=== PATIENT | female | born 1970 | race African-American/Black ===

== ENCOUNTER 2017-09-15 23:20 | Emergency (ER) | payer MEDICAID, OTHER | END 2017-09-15 23:52 | disposition left against medical advice (07) | LOC: ER 23:20 | DX: Z53.21 Procedure and treatment not carried out due to patient leaving prior to being seen by health care provider (principal) ==

== ENCOUNTER 2018-07-31 01:38 | Emergency (ER) | payer MEDICAID ==
[~2018-07-31] VITALS: Ht 167.6 cm; Wt 66.0 kg
[2018-07-31] MEDS ORDERED: KETOROLAC 60MG/2ML VIAL IM ONE (03:00)
[2018-07-31 03:11] LABS: CLARITY URINE CLEAR (CLEAR); COLOR URINE YELLOW (YELLOW); KETONES URINE TRACE (NEGATIVE); LEUKOCYTE ESTERASE URINE NEGATIVE (NEGATIVE); NITRITE URINE NEGATIVE (NEGATIVE); OCCULT BLOOD URINE 2+ (NEGATIVE); PH URINE 5.5 (4.5-8.0); PROTEIN URINE NEGATIVE (NEGATIVE); SPECIFIC GRAVITY URINE 1.026 (1.005-1.030)
[2018-07-31 04:40] VITALS: BP 120/85
== END 2018-07-31 04:48 | disposition home or self-care (01) ==
LOC: ER 02:36
DX: R60.0 Localized edema (principal); F12.10 Cannabis abuse, uncomplicated; Z98.890 Other specified postprocedural states; Z88.1 Allergy status to other antibiotic agents
CPT/HCPCS: 81003; 81025; 93970; 96372; 99284; J1885

== ENCOUNTER 2018-08-03 22:46 | Emergency (ER) | payer MEDICAID ==
[~2018-08-03] VITALS: Ht 167.6 cm; Wt 64.0 kg
[2018-08-03 23:54] VITALS: BP 126/105
[2018-08-04] MEDS ORDERED: IBUPROFEN 600MG TABLET PO ONE (00:45)
[2018-08-04 01:19] LABS: CLARITY URINE CLOUDY (CLEAR); COLOR URINE YELLOW (YELLOW); KETONES URINE TRACE (NEGATIVE); LEUKOCYTE ESTERASE URINE TRACE (NEGATIVE); NITRITE URINE NEGATIVE (NEGATIVE); OCCULT BLOOD URINE NEGATIVE (NEGATIVE); PROTEIN URINE NEGATIVE (NEGATIVE); SPECIFIC GRAVITY URINE 1.036 (1.005-1.030)
[2018-08-04 01:31] LABS: *AMPHETAMINES SCREEN URINE NEGATIVE (NEGATIVE); *BARBITURATES SCREEN URINE NEGATIVE (NEGATIVE); *BENZODIAZEPINES SCREEN URINE NEGATIVE (NEGATIVE); *COCAINE SCREEN URINE NEGATIVE (NEGATIVE); METHADONE URINE SCREEN NEGATIVE (NEGATIVE)
[2018-08-04 01:32] LABS: PHENCYCLIDINE URINE SCREEN NEGATIVE (NEGATIVE)
[2018-08-04 01:35] LABS: CANNABINOID URINE SCREEN PRESUMTIVE POSITIVE (NEGATIVE); OPIATES URINE SCREEN PRESUMTIVE POSITIVE (NEGATIVE)
[2018-08-04 01:50] LABS: HEMATOCRIT. 35.1 % (36.0-48.0); HEMOGLOBIN. 11.5 g/dL (12.0-16.0); LYMPHOCYTES % 30.1 % (20.0-50.0); MEAN CORPUSCULAR HEMOGLOBIN 27.9 pg (28.0-32.0); MEAN CORPUSCULAR VOLUME 84.7 fL (81.0-99.0); MEAN PLATELET VOLUME 9.3 fl (7.4-10.4); MONOCYTES % 9.6 % (2.0-8.0); NEUTROPHILS % 58.3 % (40.0-76.0); PLATELET 192 x1000/uL (130-400); RED BLOOD CELL COUNT 4.14 mill/uL (4.2-5.4); RED CELL DISTRIBUTION WIDTH 13.7 % (11.6-14.6)
[2018-08-04 01:55] LABS: CHLORIDE 106 mEq/L (98-107)
[2018-08-04 01:56] LABS: PROTHROMBIN TIME 9.9 sec (9.6-11.0)
[2018-08-04] MEDS ORDERED: CEPHALEXIN 250MG CAPSULE PO ONE (02:30)
[2018-08-04] MEDS ORDERED: ACETAMINOPHEN 325MG TABLET PO ONE (02:30)
== END 2018-08-04 02:33 | disposition home or self-care (01) ==
LOC: ER 22:46
DX: M54.42 Lumbago with sciatica, left side (principal); N39.0 Urinary tract infection, site not specified; M79.605 Pain in left leg; F12.10 Cannabis abuse, uncomplicated; Z98.890 Other specified postprocedural states; Z88.1 Allergy status to other antibiotic agents
CPT/HCPCS: 36415; 73502; 80305; 81025; 99284

== ENCOUNTER 2018-10-13 06:15 | Emergency (ER) | payer MEDICAID ==
[~2018-10-13] VITALS: Ht 167.6 cm; Wt 69.0 kg
[2018-10-13 06:55] VITALS: BP 124/58
[2018-10-13] MEDS ORDERED: CEFTRIAXONE SODIUM 250 MG/VIAL IM ONE (07:15)
[2018-10-13] MEDS ORDERED: AZITHROMYCIN 500 MG TABLET PO ONE (07:15)
[2018-10-13 07:54] LABS: CLARITY URINE CLOUDY (CLEAR); COLOR URINE YELLOW (YELLOW); KETONES URINE NEGATIVE (NEGATIVE); LEUKOCYTE ESTERASE URINE NEGATIVE (NEGATIVE); NITRITE URINE NEGATIVE (NEGATIVE); OCCULT BLOOD URINE TRACE (NEGATIVE); PH URINE 5.5 (4.5-8.0); PROTEIN URINE NEGATIVE (NEGATIVE); SPECIFIC GRAVITY URINE 1.023 (1.005-1.030)
[2018-10-15 04:14] LABS: CHLAMYDIA TRACHOMATIS NAA Negative (Negative); NEISSERIA GONORRHOEAE NAA Negative (Negative)
== END 2018-10-13 09:10 | disposition left against medical advice (07) ==
LOC: ER 06:15
DX: N76.0 Acute vaginitis (principal); F12.10 Cannabis abuse, uncomplicated; Z87.440 Personal history of urinary (tract) infections; Z98.890 Other specified postprocedural states; Z88.1 Allergy status to other antibiotic agents
CPT/HCPCS: 81003; 81025; 87491; 87591; 96372; 99283; J0696

== ENCOUNTER 2019-01-16 06:52 | Emergency (ER) | payer MEDICAID ==
[~2019-01-16] VITALS: Ht 167.6 cm; Wt 75.0 kg
[2019-01-16 07:59] LABS: CLARITY URINE CLEAR (CLEAR); COLOR URINE YELLOW (YELLOW); KETONES URINE TRACE (NEGATIVE); LEUKOCYTE ESTERASE URINE NEGATIVE (NEGATIVE); NITRITE URINE NEGATIVE (NEGATIVE); OCCULT BLOOD URINE NEGATIVE (NEGATIVE); PROTEIN URINE NEGATIVE (NEGATIVE); SPECIFIC GRAVITY URINE 1.029 (1.005-1.030); UROBILINOGEN URINE 0.2 E.U./dL (0.2-1.0)
[2019-01-16 09:06] VITALS: BP 135/75
== END 2019-01-16 09:08 | disposition home or self-care (01) ==
LOC: ER 06:52
DX: B86 Scabies (principal); R30.0 Dysuria; F12.90 Cannabis use, unspecified, uncomplicated
CPT/HCPCS: 81003; 81025; 99283

== ENCOUNTER 2019-03-01 23:42 | Emergency (ER) | payer MEDICAID ==
[~2019-03-01] VITALS: Ht 167.6 cm; Wt 73.0 kg
[2019-03-02] MEDS ORDERED: PHENAZOPYRIDINE HCL 100MG TABLET PO ONE (02:00)
[2019-03-02] MEDS ORDERED: NITROFURANTOIN 100MG M/M CAPSULE PO ONE (02:00)
[2019-03-02 02:38] VITALS: BP 118/74
== END 2019-03-02 02:46 | disposition home or self-care (01) ==
LOC: ER 23:42
DX: N39.0 Urinary tract infection, site not specified (principal); F12.10 Cannabis abuse, uncomplicated; Z88.1 Allergy status to other antibiotic agents; Z98.890 Other specified postprocedural states; Z82.49 Family history of ischemic heart disease and other diseases of the circulatory system
CPT/HCPCS: 81025; 99283; Z7610

== ENCOUNTER 2019-11-12 02:34 | Emergency (ER) | payer OTHER ==
[~2019-11-12] VITALS: Ht 167.6 cm; Wt 74.0 kg
[2019-11-12] MEDS ORDERED: LIDOCAINE HCL 1% 20ML VIAL (Pyxis) INJ INFIL ONE (03:30)
[2019-11-12] MEDS ORDERED: CEFTRIAXONE SODIUM 250 MG/VIAL IM ONE (03:30)
[2019-11-12] MEDS ORDERED: ONDANSETRON HCL 4MG/2ML INJ IM ONE (03:30)
[2019-11-12] MEDS ORDERED: FAMOTIDINE 20MG TABLET PO ONE (03:30)
[2019-11-12] MEDS ORDERED: AZITHROMYCIN 500 MG TABLET PO ONE (03:30)
[2019-11-12 03:47] LABS: CLARITY URINE CLEAR (CLEAR); COLOR URINE YELLOW (YELLOW); KETONES URINE NEGATIVE (NEGATIVE); LEUKOCYTE ESTERASE URINE NEGATIVE (NEGATIVE); NITRITE URINE NEGATIVE (NEGATIVE); OCCULT BLOOD URINE NEGATIVE (NEGATIVE); PROTEIN URINE NEGATIVE (NEGATIVE); SPECIFIC GRAVITY URINE 1.006 (1.005-1.030); UROBILINOGEN URINE 0.2 E.U./dL (0.2-1.0)
[2019-11-12 05:40] VITALS: BP 122/87
[2019-11-14 04:07] LABS: NEISSERIA GONORRHOEAE NAA Negative (Negative)
== END 2019-11-12 05:41 | disposition home or self-care (01) ==
LOC: ER 02:34
DX: N72 Inflammatory disease of cervix uteri (principal); H10.9 Unspecified conjunctivitis; Z98.890 Other specified postprocedural states
CPT/HCPCS: 81003; 81025; 87210; 87491; 87591; 96372; 99284; J0696; J2405; J3490

== ENCOUNTER 2019-11-26 17:50 | Emergency (ER) | payer OTHER ==
[~2019-11-26] VITALS: Ht 170.2 cm; Wt 73.0 kg
[2019-11-26 17:55] VITALS: BP 136/90
== END 2019-11-26 22:07 | disposition left against medical advice (07) ==
LOC: ER 17:50
DX: R07.89 Other chest pain (principal)
CPT/HCPCS: 93005; 99283

== ENCOUNTER 2019-12-02 16:40 | Emergency (ER) | payer OTHER ==
[~2019-12-02] VITALS: Ht 162.6 cm; Wt 80.0 kg
[2019-12-02 16:43] VITALS: BP 131/83
[2019-12-02] MEDS ORDERED: DEXAMETHASONE 4MG/ML 1ML VIAL IM ONE (17:15)
[2019-12-02] MEDS ORDERED: DIPHENHYDRAMINE 25MG CAPSULE PO ONE (17:15)
[2019-12-02 17:59] LABS: CLARITY URINE CLOUDY (CLEAR); COLOR URINE ORANGE (YELLOW); KETONES URINE NEGATIVE (NEGATIVE); LEUKOCYTE ESTERASE URINE 1+ (NEGATIVE); NITRITE URINE NEGATIVE (NEGATIVE); OCCULT BLOOD URINE 3+ (NEGATIVE); PROTEIN URINE 2+ (NEGATIVE); SPECIFIC GRAVITY URINE 1.042 (1.005-1.030)
== END 2019-12-02 18:15 | disposition home or self-care (01) ==
LOC: ER 16:40
DX: T78.40XA Allergy, unspecified, initial encounter (principal); X58.XXXA Exposure to other specified factors, initial encounter; B37.41 Candidal cystitis and urethritis
CPT/HCPCS: 81003; 81025; 96372; 99283; J1100; Q0163

== ENCOUNTER 2019-12-04 03:40 | Emergency (ER) | payer OTHER ==
[~2019-12-04] VITALS: Ht 167.6 cm; Wt 73.0 kg
[2019-12-04] MEDS ORDERED: DIPHENHYDRAMINE 50MG/ML VIAL IM ONE (04:00)
[2019-12-04] MEDS ORDERED: VISCOUS LIDOCAINE 2% 15 ML UDC PO ONE (04:15)
[2019-12-04] MEDS ORDERED: MAGNESIUM/ALUMINUM HYDROXIDE/SIMETHICONE 30ML UDC PO ONE (04:15)
[2019-12-04] MEDS ORDERED: KETOROLAC 30MG/ML VIAL IV STA (05:39)
[2019-12-04] MEDS ORDERED: SODIUM CHLORIDE 0.9% 1,000 ML IV ONE (05:39)
[2019-12-04 06:00] LABS: BASOPHILS % 0.3 % (0.0-2.0); HEMATOCRIT. 37.8 % (36.0-48.0); HEMOGLOBIN. 12.3 g/dL (12.0-16.0); MEAN CORPUSCULAR HEMOGLOBIN 28.1 pg (28.0-32.0); MEAN CORPUSCULAR VOLUME 86.5 fL (81.0-99.0); MEAN PLATELET VOLUME 10.2 fl (7.4-10.4); MONOCYTES % 9.6 % (2.0-8.0); NEUTROPHILS % 72.1 % (40.0-76.0); PLATELET 174 x1000/uL (130-400); RED BLOOD CELL COUNT 4.37 mill/uL (4.2-5.4); RED CELL DISTRIBUTION WIDTH 13.9 % (11.6-14.6)
[2019-12-04 06:08] LABS: CHLORIDE 110 mEq/L (98-107)
[2019-12-04 06:18] LABS: HCG SCREEN NEGATIVE
[2019-12-04] MEDS ORDERED: POTASSIUM CHLORIDE 20MEQ TABLET SR PO ONE (06:45)
[2019-12-04 10:59] LABS: CLARITY URINE CLOUDY (CLEAR); COLOR URINE YELLOW (YELLOW); KETONES URINE NEGATIVE (NEGATIVE); LEUKOCYTE ESTERASE URINE 1+ (NEGATIVE); NITRITE URINE NEGATIVE (NEGATIVE); OCCULT BLOOD URINE 3+ (NEGATIVE); PH URINE 5.5 (4.5-8.0); PROTEIN URINE 1+ (NEGATIVE); SPECIFIC GRAVITY URINE 1.025 (1.005-1.030)
[2019-12-04 11:11] VITALS: BP 124/77
== END 2019-12-04 11:12 | disposition home or self-care (01) ==
LOC: ER 03:40
DX: N83.292 Other ovarian cyst, left side (principal); N83.291 Other ovarian cyst, right side; D25.9 Leiomyoma of uterus, unspecified; N39.0 Urinary tract infection, site not specified; T78.40XA Allergy, unspecified, initial encounter; X58.XXXA Exposure to other specified factors, initial encounter; R03.0 Elevated blood-pressure reading, without diagnosis of hypertension
CPT/HCPCS: 36415; 74176; 76830; 76856; 80053; 81003; 83690; 84703; 85025; 87086; 96361; 96372; 96374; 99285; J1200; J1885; J7030

== ENCOUNTER 2021-04-04 18:24 | Emergency (ER) | payer OTHER ==
[~2021-04-04] VITALS: Ht 167.6 cm; Wt 69.0 kg
[2021-04-04 18:32] VITALS: BP 159/85
== END 2021-04-04 22:00 | disposition left against medical advice (07) ==
LOC: ER 18:24
DX: Z53.21 Procedure and treatment not carried out due to patient leaving prior to being seen by health care provider (principal)

== ENCOUNTER 2021-11-18 22:18 | Emergency (ER) | payer OTHER ==
[~2021-11-18] VITALS: Ht 167.6 cm; Wt 79.0 kg
[2021-11-18 22:21] VITALS: BP 140/79
[2021-11-18] MEDS ORDERED: PSEU-207 MT (23:47)
[2021-11-18] MEDS ORDERED: SODI88SP18 BOTHNSTRLS (23:47)
== END 2021-11-19 00:01 | disposition home or self-care (01) ==
LOC: ER 22:18
DX: R09.81 Nasal congestion (principal); R06.00 Dyspnea, unspecified; R53.1 Weakness; J02.9 Acute pharyngitis, unspecified; I10 Essential (primary) hypertension
CPT/HCPCS: 99281; 99282

== ENCOUNTER 2021-12-29 00:05 | Emergency (ER) | payer OTHER ==
[~2021-12-29] VITALS: Ht 167.6 cm; Wt 79.0 kg
[~2021-12-29 00:05] MED LIST: PSEU-207 MT; SODI88SP18 BOTHNSTRLS
[2021-12-29 00:13] VITALS: BP 121/87
== END 2021-12-29 02:44 | disposition left against medical advice (07) ==
LOC: ER 00:05
DX: Z53.21 Procedure and treatment not carried out due to patient leaving prior to being seen by health care provider (principal)

== ENCOUNTER 2022-01-10 19:55 | Emergency (ER) | payer OTHER ==
[~2022-01-10] VITALS: Ht 167.6 cm; Wt 80.9 kg
[2022-01-10] MEDS ORDERED: ASPIRIN 81MG TABLET PO ONE (22:30)
[2022-01-10 23:01] LABS: BASOPHILS % 0.4 % (0.0-2.0); EOSINOPHILS % 3.8 % (0.0-5.0); HEMATOCRIT. 41.4 % (36.0-48.0); HEMOGLOBIN. 13.5 g/dL (12.0-16.0); LYMPHOCYTES % 35.8 % (20.0-50.0); MEAN CORPUSCULAR HEMOGLOBIN 27.5 pg (28.0-32.0); MEAN CORPUSCULAR VOLUME 84.5 fL (81.0-99.0); MEAN PLATELET VOLUME 10.2 fl (7.4-10.4); MONOCYTES % 8.7 % (2.0-8.0); NEUTROPHILS % 51.3 % (40.0-76.0); PLATELET 192 x1000/uL (130-400); RED BLOOD CELL COUNT 4.89 mill/uL (4.2-5.4); RED CELL DISTRIBUTION WIDTH 14.3 % (11.6-14.6)
[2022-01-10 23:08] LABS: CHLORIDE 106 mEq/L (98-107)
[2022-01-10 23:10] LABS: CLARITY URINE CLEAR (CLEAR); COLOR URINE YELLOW (YELLOW); KETONES URINE TRACE (NEGATIVE); LEUKOCYTE ESTERASE URINE TRACE (NEGATIVE); NITRITE URINE NEGATIVE (NEGATIVE); OCCULT BLOOD URINE NEGATIVE (NEGATIVE); PROTEIN URINE NEGATIVE (NEGATIVE); SPECIFIC GRAVITY URINE 1.027 (1.005-1.030)
[2022-01-11] MEDS ORDERED: CEFTRIAXONE 1 G PREMIX 50 ML IV NR (01:30)
[2022-01-11] MEDS ORDERED: CEPHALEXIN 250MG CAPSULE PO ONE (01:45)
[2022-01-11] MEDS ORDERED: CEPH500C2 MT (03:06)
[2022-01-11 03:19] VITALS: BP 113/90
== END 2022-01-11 03:36 | disposition home or self-care (01) ==
LOC: ER 19:55
DX: R55 Syncope and collapse (principal); N39.0 Urinary tract infection, site not specified; Z98.890 Other specified postprocedural states
CPT/HCPCS: 36415; 71045; 80053; 81003; 83880; 84484; 85025; 93005; 99285; Z7610

== ENCOUNTER 2022-02-26 03:44 | Emergency (ER) | payer MEDICAID, OTHER ==
[~2022-02-26] VITALS: Ht 167.6 cm; Wt 82.0 kg
[~2022-02-26 03:44] MED LIST changes: +CEPH500C2 MT
[2022-02-26] MEDS ORDERED: GUAI600T26 MT (06:13)
[2022-02-26 06:15] VITALS: BP 135/89
[2022-02-26] MEDS ORDERED: GUAIFENESIN 600MG ER TABLET PO ONE (06:15)
== END 2022-02-26 06:22 | disposition home or self-care (01) ==
LOC: ER 03:44
DX: B34.9 Viral infection, unspecified (principal); Z13.9 Encounter for screening, unspecified; Z20.822 Contact with and (suspected) exposure to COVID-19; Z88.1 Allergy status to other antibiotic agents; Z98.890 Other specified postprocedural states
CPT/HCPCS: 71045; 81025; 87426; 99284; C9803

== ENCOUNTER 2022-03-02 00:08 | Emergency (ER) | payer MEDICAID ==
[~2022-03-02 00:08] MED LIST changes: +GUAI600T26 MT
== END 2022-03-02 00:25 | disposition left against medical advice (07) ==
LOC: ER 00:08
DX: Z53.21 Procedure and treatment not carried out due to patient leaving prior to being seen by health care provider (principal)

== ENCOUNTER 2022-05-02 16:42 | Emergency (ER) | payer MEDICAID ==
[~2022-05-02] VITALS: Ht 167.6 cm; Wt 82.0 kg
[2022-05-02 17:06] VITALS: BP 128/87
[2022-05-02] MEDS ORDERED: CEFTRIAXONE SODIUM 500 MG/VIAL IM ONE (22:00)
[2022-05-02] MEDS ORDERED: IBUPROFEN 400MG TABLET PO ONE (22:00)
== END 2022-05-03 01:07 | disposition left against medical advice (07) ==
LOC: ER 16:42
DX: M25.531 Pain in right wrist (principal); Z88.1 Allergy status to other antibiotic agents; Z98.890 Other specified postprocedural states; W10.9XXA Fall (on) (from) unspecified stairs and steps, initial encounter; Y93.89 Activity, other specified; Y92.89 Other specified places as the place of occurrence of the external cause; Y99.9 Unspecified external cause status
CPT/HCPCS: 73090; 73100; 96372; 99284; J0696

== ENCOUNTER 2022-05-13 22:03 | Emergency (ER) | payer MEDICAID, OTHER ==
[~2022-05-13] VITALS: Ht 167.6 cm; Wt 82.0 kg
[2022-05-13 22:17] VITALS: BP 143/92
== END 2022-05-14 01:25 | disposition left against medical advice (07) ==
LOC: ER 22:13
DX: Z53.21 Procedure and treatment not carried out due to patient leaving prior to being seen by health care provider (principal); I49.9 Cardiac arrhythmia, unspecified
CPT/HCPCS: 93005

== ENCOUNTER 2022-05-19 20:02 | Emergency (ER) | payer MEDICAID ==
[~2022-05-19] VITALS: Ht 167.6 cm; Wt 82.0 kg
[2022-05-19 20:10] VITALS: BP 147/87
== END 2022-05-20 02:15 | disposition left against medical advice (07) ==
LOC: ER 20:02
DX: Z53.21 Procedure and treatment not carried out due to patient leaving prior to being seen by health care provider (principal)

== ENCOUNTER 2022-06-20 20:08 | Emergency (ER) | payer MEDICAID, OTHER ==
[~2022-06-20] VITALS: Ht 167.6 cm; Wt 80.7 kg
[2022-06-20 22:28] LABS: BASOPHILS % 0.7 % (0.0-2.0); EOSINOPHILS % 3.6 % (0.0-5.0); HEMATOCRIT. 43.4 % (36.0-48.0); HEMOGLOBIN. 14.2 g/dL (12.0-16.0); LYMPHOCYTES % 36.6 % (20.0-50.0); MEAN CORPUSCULAR HEMOGLOBIN 27.5 pg (28.0-32.0); MEAN CORPUSCULAR VOLUME 84.4 fL (81.0-99.0); MEAN PLATELET VOLUME 10.6 fl (7.4-10.4); MONOCYTES % 6.7 % (2.0-8.0); NEUTROPHILS % 52.4 % (40.0-76.0); PLATELET 195 x1000/uL (130-400); RED BLOOD CELL COUNT 5.15 mill/uL (4.2-5.4); RED CELL DISTRIBUTION WIDTH 14.3 % (11.6-14.6)
[2022-06-20 22:33] LABS: CHLORIDE 110 mEq/L (98-107)
[2022-06-20 22:40] LABS: HCG SCREEN NEGATIVE
[2022-06-20 22:43] LABS: ETHANOL BLOOD < 10 mg/dL
[2022-06-20] MEDS ORDERED: LIDOCAINE 5% PATCH TOP SCH (23:00)
[2022-06-20] MEDS ORDERED: BACLOFEN 10MG TABLET PO ONE (23:00)
[2022-06-20] MEDS ORDERED: ACETAMINOPHEN 325MG TABLET PO ONE (23:00)
[2022-06-20 23:16] VITALS: BP 145/92
[2022-06-20] MEDS ORDERED: LIDO700A15 TP (23:44)
[2022-06-20] MEDS ORDERED: BACL-141 MT (23:44)
[2022-06-20] MEDS ORDERED: ACET-2708 MT (23:44)
== END 2022-06-20 23:40 | disposition home or self-care (01) ==
LOC: ER 20:08
DX: G62.9 Polyneuropathy, unspecified (principal); R03.0 Elevated blood-pressure reading, without diagnosis of hypertension; R74.01 Elevation of levels of liver transaminase levels; M25.512 Pain in left shoulder; M79.622 Pain in left upper arm; M79.645 Pain in left finger(s); R51.9 Headache, unspecified
CPT/HCPCS: 36415; 71045; 80053; 80320; 83880; 84484; 84703; 85025; 86850; 86900; 99285; G0480

== ENCOUNTER 2022-07-08 20:35 | Emergency (ER) | payer MEDICAID, OTHER ==
[~2022-07-08] VITALS: Ht 167.6 cm; Wt 86.0 kg
[~2022-07-08 20:35] MED LIST changes: +ACET-2708 MT; +BACL-141 MT; +LIDO700A15 TP
[2022-07-08 21:37] VITALS: BP 128/86
== END 2022-07-09 03:00 | disposition left against medical advice (07) ==
LOC: ER 20:35
DX: R51.9 Headache, unspecified (principal); Z53.21 Procedure and treatment not carried out due to patient leaving prior to being seen by health care provider
CPT/HCPCS: 99281

== ENCOUNTER 2022-12-28 12:15 | Emergency (ER) | payer MEDICAID, OTHER ==
[~2022-12-28] VITALS: Ht 167.6 cm; Wt 73.0 kg
[2022-12-28 12:31] VITALS: O2SAT 99
[2022-12-28] MEDS ORDERED: CEFTRIAXONE SODIUM 500 MG/VIAL IM ONE (13:00)
[2022-12-28 14:01] LABS: CLARITY URINE CLOUDY (CLEAR); COLOR URINE DARK YELLOW (YELLOW); GLUCOSE URINE NEGATIVE (NEGATIVE); KETONES URINE TRACE (NEGATIVE); LEUKOCYTE ESTERASE URINE NEGATIVE (NEGATIVE); NITRITE URINE NEGATIVE (NEGATIVE); OCCULT BLOOD URINE NEGATIVE (NEGATIVE); PH URINE 5.5 (4.5-8.0); PROTEIN URINE TRACE (NEGATIVE); SPECIFIC GRAVITY URINE 1.032 (1.005-1.030)
[2022-12-28] MEDS ORDERED: DOXY100C5 MT (14:09)
[2022-12-28 14:21] LABS: AMORPHOUS SEDIMENT URINE 1+ /lpf
[2022-12-28 14:23] LABS: BACTERIA URINE 3+
[2022-12-28 14:25] LABS: RBC URINE NONE SEEN /hpf (0-2); SQUAMOUS EPITHELIAL CELL URINE FEW /lpf (RARE/1+); WBC URINE NONE SEEN /hpf (0-2)
[2022-12-28 14:26] VITALS: BP 132/65; PULSE 85; RESP 16; TEMP 98.7
[2022-12-31 19:06] LABS: CHLAMYDIA TRACHOMATIS NAA Negative (Negative); NEISSERIA GONORRHOEAE NAA Negative (Negative)
== END 2022-12-28 14:27 | disposition home or self-care (01) ==
LOC: ER 12:15
DX: Z20.2 Contact with and (suspected) exposure to infections with a predominantly sexual mode of transmission (principal); Z88.1 Allergy status to other antibiotic agents; Z98.890 Other specified postprocedural states
CPT/HCPCS: 99283; 86592; 87491; 87591; 81003; 96372; J0696

== ENCOUNTER 2023-03-07 06:24 | Emergency (ER) | payer OTHER ==
[~2023-03-07] VITALS: Ht 167.6 cm; Wt 69.0 kg
[~2023-03-07 06:24] MED LIST changes: +DOXY100C5 MT
[2023-03-07 06:32] VITALS: BP 125/85; TEMP 98.5; O2SAT 96
[2023-03-07 06:33] VITALS: PULSE 109; RESP 16
== END 2023-03-07 07:35 | disposition left against medical advice (07) ==
LOC: ER 06:33
DX: Z53.21 Procedure and treatment not carried out due to patient leaving prior to being seen by health care provider (principal)

== ENCOUNTER 2023-05-06 11:44 | Emergency (ER) | payer OTHER ==
[~2023-05-06] VITALS: Ht 167.6 cm; Wt 74.0 kg
[2023-05-06 11:52] VITALS: BP 145/98; O2SAT 98
[2023-05-06 15:15] LABS: BASOPHILS % 0.9 % (0.0-2.0); EOSINOPHILS % 2.2 % (0.0-5.0); HEMATOCRIT. 44.8 % (36.0-48.0); HEMOGLOBIN. 14.4 g/dL (12.0-16.0); LYMPHOCYTES % 40.7 % (20.0-50.0); MEAN CORPUSCULAR HEMOGLOBIN 28.1 pg (28.0-32.0); MEAN CORPUSCULAR HGB CONC 32.2 g/dL (31.0-37.0); MEAN CORPUSCULAR VOLUME 87.4 fL (81.0-99.0); MONOCYTES % 10.5 % (2.0-8.0); NEUTROPHILS % 45.7 % (40.0-76.0); PLATELET 204 x1000/uL (130-400); RED BLOOD CELL COUNT 5.12 mill/uL (4.2-5.4); RED CELL DISTRIBUTION WIDTH 14.2 % (11.6-14.6); WHITE BLOOD COUNT 6.1 x1000/uL (4.5-11.0)
[2023-05-06 15:19] LABS: DIFFERENTIAL COMMENT 1
[2023-05-06 15:30] LABS: ALANINE AMINOTRANSFERASE 89 IU/L (10-49); ALBUMIN 4.5 g/dL (3.2-4.8); ASPARTATE AMINOTRANSFERASE 83 IU/L (<34); BILIRUBIN TOTAL 0.3 mg/dL (0.1-1.0); CALCIUM 9.6 mg/dL (8.7-10.4); CARBON DIOXIDE 24 mEq/L (21-32); CHLORIDE 106 mEq/L (98-107); CREATININE 0.9 mg/dL (0.6-1.0); GLUCOSE 78 mg/dL (70-105); PROTEIN TOTAL 8.3 g/dL (6.0-8.3); SODIUM 139 mEq/L (136-145); UREA NITROGEN BLOOD 14 mg/dL (9-23)
[2023-05-06 15:35] LABS: TROPONIN I HIGH SENSITIVITY < 4 ng/L (3.0-34)
[2023-05-06 16:10] VITALS: PULSE 89; RESP 16; TEMP 98.5
== END 2023-05-06 16:11 | disposition home or self-care (01) ==
LOC: ER 13:06
DX: I10 Essential (primary) hypertension (principal); Z88.1 Allergy status to other antibiotic agents
CPT/HCPCS: 36415; 71045; 80053; 84484; 85025; 93005; 99285

== ENCOUNTER 2023-06-16 17:47 | Emergency (ER) | payer MEDICAID ==
[~2023-06-16] VITALS: Ht 167.6 cm; Wt 75.0 kg
[~2023-06-16 17:47] MED LIST changes: +AMLO5TAB4 MT; +ASPI-1497 MT; -BACL-141 MT; -CEPH500C2 MT; -DOXY100C5 MT; -GUAI600T26 MT; +HYDR-4009 MT; -PSEU-207 MT; -SODI88SP18 BOTHNSTRLS
[2023-06-16 17:59] VITALS: BP 131/101; PULSE 90; RESP 14; TEMP 97.8; O2SAT 100
[2023-06-16] MEDS ORDERED: ACETAMINOPHEN 325MG TABLET PO NR (20:45)
== END 2023-06-16 23:45 | disposition left against medical advice (07) ==
LOC: ER 17:47
DX: R07.89 Other chest pain (principal); Z53.21 Procedure and treatment not carried out due to patient leaving prior to being seen by health care provider
CPT/HCPCS: 93005; 99281

== ENCOUNTER 2023-09-10 14:21 | Emergency (ER) | payer MEDICAID ==
[~2023-09-10] VITALS: Ht 167.6 cm; Wt 73.4 kg
[2023-09-10 14:33] VITALS: BP 116/82; PULSE 100; RESP 16; TEMP 98.5; O2SAT 100
[2023-09-10 15:03] LABS: BASOPHILS % 0.8 % (0.0-2.0); EOSINOPHILS % 0.9 % (0.0-5.0); HEMATOCRIT. 42.9 % (36.0-48.0); HEMOGLOBIN. 14.3 g/dL (12.0-16.0); LYMPHOCYTES % 29.6 % (20.0-50.0); MEAN CORPUSCULAR HEMOGLOBIN 28.8 pg (28.0-32.0); MEAN CORPUSCULAR HGB CONC 33.3 g/dL (31.0-37.0); MEAN CORPUSCULAR VOLUME 86.6 fL (81.0-99.0); MEAN PLATELET VOLUME 10.1 fl (7.4-10.4); MONOCYTES % 8.2 % (2.0-8.0); NEUTROPHILS % 60.5 % (40.0-76.0); PLATELET 220 x1000/uL (130-400); RED BLOOD CELL COUNT 4.96 mill/uL (4.2-5.4); RED CELL DISTRIBUTION WIDTH 14.5 % (11.6-14.6); WHITE BLOOD COUNT 6.3 x1000/uL (4.5-11.0)
[2023-09-10 15:10] LABS: CHLORIDE 103 mEq/L (98-107); POTASSIUM 3.8 mEq/L (3.5-5.1); SODIUM 141 mEq/L (136-145)
[2023-09-10 15:11] LABS: CALCIUM 10.5 mg/dL (8.7-10.4); CARBON DIOXIDE 28 mEq/L (21-32)
[2023-09-10 15:16] LABS: GLUCOSE 91 mg/dL (70-105); UREA NITROGEN BLOOD 13 mg/dL (9-23)
[2023-09-10 15:35] LABS: TROPONIN I HIGH SENSITIVITY < 4 ng/L (3.0-34)
== END 2023-09-10 16:38 | disposition home or self-care (01) ==
LOC: ER 14:21
DX: R07.89 Other chest pain (principal); I10 Essential (primary) hypertension; Z98.890 Other specified postprocedural states; Z88.8 Allergy status to other drugs, medicaments and biological substances
CPT/HCPCS: 36415; 71045; 80048; 84484; 85025; 93005; 99285

== ENCOUNTER 2024-04-09 19:08 | Emergency (ER) | payer MEDICAID ==
[~2024-04-09] VITALS: Ht 167.6 cm; Wt 82.0 kg
[~2024-04-09 19:08] MED LIST changes: -AMLO5TAB4 MT; +AMLO5TAB5 MT
[2024-04-09 19:13] VITALS: O2SAT 98
[2024-04-09 21:39] LABS: BASOPHILS % 0.3 % (0.0-2.0); EOSINOPHILS % 2.4 % (0.0-5.0); HEMATOCRIT. 43.6 % (36.0-48.0); HEMOGLOBIN. 14.2 g/dL (12.0-16.0); LYMPHOCYTES % 48.1 % (20.0-50.0); MEAN CORPUSCULAR HEMOGLOBIN 27.8 pg (28.0-32.0); MEAN CORPUSCULAR HGB CONC 32.5 g/dL (31.0-37.0); MEAN CORPUSCULAR VOLUME 85.4 fL (81.0-99.0); MEAN PLATELET VOLUME 10.4 fl (7.4-10.4); MONOCYTES % 8.8 % (2.0-8.0); NEUTROPHILS % 40.4 % (40.0-76.0); PLATELET 228 x1000/uL (130-400); WHITE BLOOD COUNT 5.5 x1000/uL (4.5-11.0)
[2024-04-09 21:41] LABS: CHLORIDE 104 mEq/L (98-107); POTASSIUM 3.5 mEq/L (3.5-5.1); SODIUM 138 mEq/L (136-145)
[2024-04-09 21:42] LABS: CALCIUM 9.8 mg/dL (8.7-10.4); CARBON DIOXIDE 28 mEq/L (21-32)
[2024-04-09 21:47] LABS: CREATININE 0.9 mg/dL (0.6-1.0); GLUCOSE 103 mg/dL (70-105); UREA NITROGEN BLOOD 15 mg/dL (9-23)
[2024-04-09 21:50] LABS: TROPONIN I HIGH SENSITIVITY < 4 ng/L (3.0-34)
[2024-04-10] MEDS ORDERED: GABA100C MT (00:06)
[2024-04-10] MEDS ORDERED: AMLO10TA4 MT (00:24)
[2024-04-10 00:36] VITALS: BP 108/78; PULSE 72; RESP 19; TEMP 36.83628; O2SAT 100
== END 2024-04-10 00:37 | disposition home or self-care (01) ==
LOC: ER 19:08
DX: R07.89 Other chest pain (principal); G62.9 Polyneuropathy, unspecified; I10 Essential (primary) hypertension; Z79.899 Other long term (current) drug therapy; Z79.82 Long term (current) use of aspirin; Z88.1 Allergy status to other antibiotic agents; Z82.49 Family history of ischemic heart disease and other diseases of the circulatory system
CPT/HCPCS: 36415; 71045; 80048; 84484; 85025; 93005; 99285

== ENCOUNTER 2024-04-25 19:49 | Emergency (ER) | payer MEDICAID ==
[~2024-04-25] VITALS: Ht 167.6 cm; Wt 74.2 kg
[~2024-04-25 19:49] MED LIST changes: +AMLO10TA4 MT; +GABA100C MT
[2024-04-25 19:57] VITALS: BP 133/98; PULSE 98; RESP 18; TEMP 98.5; O2SAT 98
== END 2024-04-25 21:00 | disposition left against medical advice (07) ==
LOC: ER 19:49
DX: J02.9 Acute pharyngitis, unspecified (principal); Z53.21 Procedure and treatment not carried out due to patient leaving prior to being seen by health care provider

== ENCOUNTER 2024-04-29 05:27 | Emergency (ER) | payer MEDICAID ==
[~2024-04-29] VITALS: Ht 167.6 cm; Wt 79.0 kg
[2024-04-29 05:35] VITALS: O2SAT 97
[2024-04-29 05:36] VITALS: BP 129/75; PULSE 97; RESP 18; TEMP 99.1; O2SAT 97
[2024-04-29 07:20] LABS: CLARITY URINE TURBID (CLEAR); COLOR URINE YELLOW (YELLOW); GLUCOSE URINE NEGATIVE (NEGATIVE); KETONES URINE TRACE (NEGATIVE); LEUKOCYTE ESTERASE URINE TRACE (NEGATIVE); NITRITE URINE NEGATIVE (NEGATIVE); OCCULT BLOOD URINE 3+ (NEGATIVE); PH URINE 5.5 (4.5-8.0); PROTEIN URINE 1+ (NEGATIVE); SPECIFIC GRAVITY URINE 1.029 (1.005-1.030)
[2024-04-29 09:07] LABS: SQUAMOUS EPITHELIAL CELL URINE 3+ /lpf (RARE/1+)
[2024-04-29 09:08] LABS: BACTERIA URINE 4+; RBC URINE 0-2 /hpf (0-2)
== END 2024-04-29 09:03 | disposition left against medical advice (07) ==
LOC: ER 05:27
DX: R30.0 Dysuria (principal); Z53.21 Procedure and treatment not carried out due to patient leaving prior to being seen by health care provider
CPT/HCPCS: 81003

== ENCOUNTER 2024-05-01 04:33 | Emergency (ER) | payer MEDICAID ==
[~2024-05-01] VITALS: Ht 167.6 cm; Wt 74.7 kg
[2024-05-01 04:35] VITALS: BP 125/78; TEMP 97.7; O2SAT 100
[2024-05-01 04:37] VITALS: PULSE 87; RESP 16; O2SAT 97
[2024-05-01] MEDS ORDERED: DOXY100C5 MT (06:11)
[2024-05-01] MEDS ORDERED: CEPH250C2 MT (06:12)
[2024-05-01] MEDS: FLUCONAZOLE 150MG TABLET PO ONE (07:30)
[2024-05-01] MEDS: DOXYCYCLINE HYCLATE 100MG CAPSULE PO ONE (07:30)
[2024-05-01] MEDS: CEFTRIAXONE SODIUM 500MG VIAL IM ONE (07:31)
[2024-05-01 07:58] LABS: CLARITY URINE CLOUDY (CLEAR); COLOR URINE YELLOW (YELLOW); GLUCOSE URINE NEGATIVE (NEGATIVE); KETONES URINE NEGATIVE (NEGATIVE); LEUKOCYTE ESTERASE URINE TRACE (NEGATIVE); NITRITE URINE NEGATIVE (NEGATIVE); OCCULT BLOOD URINE 2+ (NEGATIVE); PH URINE 6.5 (4.5-8.0); PROTEIN URINE NEGATIVE (NEGATIVE); SPECIFIC GRAVITY URINE 1.023 (1.005-1.030)
[2024-05-01 08:37] LABS: SQUAMOUS EPITHELIAL CELL URINE 3+ /lpf (RARE/1+)
[2024-05-01 08:38] LABS: BACTERIA URINE 3+
[2024-05-01 08:39] LABS: RBC URINE 0-2 /hpf (0-2); WBC URINE 0-2 /hpf (0-2)
== END 2024-05-01 07:36 | disposition home or self-care (01) ==
LOC: ER 04:41
DX: N30.90 Cystitis, unspecified without hematuria (principal); I10 Essential (primary) hypertension; Z88.1 Allergy status to other antibiotic agents; Z79.899 Other long term (current) drug therapy; Z79.82 Long term (current) use of aspirin; Z98.890 Other specified postprocedural states
CPT/HCPCS: 99283; 87491; 87591; 81003; 96372; J0696

== ENCOUNTER 2024-07-08 20:28 | Emergency (ER) | payer MEDICAID ==
[~2024-07-08] VITALS: Ht 167.6 cm; Wt 81.0 kg
[~2024-07-08 20:28] MED LIST changes: +CEPH250C2 MT; +DOXY100C5 MT
[2024-07-08 20:38] VITALS: O2SAT 98
[2024-07-08 20:46] VITALS: BP 138/92; PULSE 133; RESP 20; TEMP 36.9; O2SAT 100
[2024-07-08 21:32] LABS: BASOPHILS % 0.5 % (0.0-2.0); EOSINOPHILS % 2.8 % (0.0-5.0); HEMOGLOBIN. 12.6 g/dL (12.0-16.0); LYMPHOCYTES % 51.1 % (20.0-50.0); MEAN CORPUSCULAR HEMOGLOBIN 27.7 pg (28.0-32.0); MEAN CORPUSCULAR HGB CONC 32.2 g/dL (31.0-37.0); MEAN PLATELET VOLUME 10.6 fl (7.4-10.4); MONOCYTES % 8.5 % (2.0-8.0); NEUTROPHILS % 37.1 % (40.0-76.0); PLATELET 171 x1000/uL (130-400); RED BLOOD CELL COUNT 4.54 mill/uL (4.2-5.4)
[2024-07-08 21:39] LABS: CHLORIDE 106 mEq/L (98-107); POTASSIUM 3.7 mEq/L (3.5-5.1); SODIUM 141 mEq/L (136-145)
[2024-07-08 21:40] LABS: CALCIUM 9.2 mg/dL (8.7-10.4); CARBON DIOXIDE 26 mEq/L (21-32)
[2024-07-08 21:42] LABS: HCG SCREEN NEGATIVE
[2024-07-08 21:45] LABS: CREATININE 0.8 mg/dL (0.6-1.0); GLUCOSE 92 mg/dL (70-105); UREA NITROGEN BLOOD 15 mg/dL (9-23)
[2024-07-08 21:48] LABS: TROPONIN I HIGH SENSITIVITY < 4 ng/L (3.0-34)
[2024-07-08 22:28] LABS: CLARITY URINE CLEAR (CLEAR); COLOR URINE YELLOW (YELLOW); GLUCOSE URINE NEGATIVE (NEGATIVE); KETONES URINE NEGATIVE (NEGATIVE); LEUKOCYTE ESTERASE URINE NEGATIVE (NEGATIVE); NITRITE URINE NEGATIVE (NEGATIVE); OCCULT BLOOD URINE NEGATIVE (NEGATIVE); PROTEIN URINE NEGATIVE (NEGATIVE); SPECIFIC GRAVITY URINE 1.024 (1.005-1.030)
== END 2024-07-08 22:57 | disposition left against medical advice (07) ==
LOC: ER 20:28
DX: M25.511 Pain in right shoulder (principal); M79.601 Pain in right arm; Z53.21 Procedure and treatment not carried out due to patient leaving prior to being seen by health care provider
CPT/HCPCS: 36415; 71045; 80048; 81003; 84484; 84703; 85025; 93005

== ENCOUNTER 2024-08-07 00:40 | Emergency (ER) | payer MEDICAID ==
[~2024-08-07] VITALS: Ht 167.6 cm; Wt 78.0 kg
[~2024-08-07 00:40] MED LIST changes: +AMLO-905 MT; -AMLO10TA4 MT
[2024-08-07 00:50] VITALS: TEMP 36.8; O2SAT 98
[2024-08-07 01:28] LABS: BASOPHILS % 0.8 % (0.0-2.0); EOSINOPHILS % 1.9 % (0.0-5.0); HEMATOCRIT. 38.3 % (36.0-48.0); HEMOGLOBIN. 12.5 g/dL (12.0-16.0); LYMPHOCYTES % 45.5 % (20.0-50.0); MEAN CORPUSCULAR HEMOGLOBIN 27.5 pg (28.0-32.0); MEAN CORPUSCULAR HGB CONC 32.6 g/dL (31.0-37.0); MEAN CORPUSCULAR VOLUME 84.3 fL (81.0-99.0); MEAN PLATELET VOLUME 10.8 fl (7.4-10.4); MONOCYTES % 9.6 % (2.0-8.0); NEUTROPHILS % 42.2 % (40.0-76.0); PLATELET 192 x1000/uL (130-400); RED BLOOD CELL COUNT 4.54 mill/uL (4.2-5.4); RED CELL DISTRIBUTION WIDTH 13.3 % (11.6-14.6); WHITE BLOOD COUNT 5.8 x1000/uL (4.5-11.0)
[2024-08-07 01:34] LABS: CHLORIDE 108 mEq/L (98-107); POTASSIUM 3.5 mEq/L (3.5-5.1); SODIUM 141 mEq/L (136-145)
[2024-08-07 01:35] LABS: CARBON DIOXIDE 26 mEq/L (21-32)
[2024-08-07 01:36] LABS: CALCIUM 9.3 mg/dL (8.7-10.4)
[2024-08-07 01:40] LABS: GLUCOSE 84 mg/dL (70-105)
[2024-08-07 01:41] LABS: UREA NITROGEN BLOOD 19 mg/dL (9-23)
[2024-08-07 01:52] LABS: TROPONIN I HIGH SENSITIVITY < 4 ng/L (3.0-34)
[2024-08-07 07:18] VITALS: BP 120/60; PULSE 70; RESP 20; O2SAT 99
== END 2024-08-07 07:19 | disposition home or self-care (01) ==
LOC: ER 00:56
DX: R07.89 Other chest pain (principal); M25.511 Pain in right shoulder; Z79.899 Other long term (current) drug therapy; Z79.82 Long term (current) use of aspirin; Z98.890 Other specified postprocedural states; F12.90 Cannabis use, unspecified, uncomplicated; Z88.1 Allergy status to other antibiotic agents
CPT/HCPCS: 36415; 71045; 80048; 84484; 85025; 93005; 99285

== ENCOUNTER 2024-12-11 23:00 | Emergency (ER) | payer MEDICAID ==
[~2024-12-11] VITALS: Ht 167.6 cm; Wt 73.0 kg
[~2024-12-11 23:00] MED LIST changes: -AMLO5TAB5 MT; +AMLO5TAB6 MT; +LIDO-53 TP; -LIDO700A15 TP; +NAPR-1176 MT
[2024-12-11 23:10] VITALS: O2SAT 79
[2024-12-11 23:44] LABS: BASOPHILS % 1.1 % (0.0-2.0); EOSINOPHILS % 2.4 % (0.0-5.0); HEMATOCRIT. 41.6 % (36.0-48.0); HEMOGLOBIN. 13.5 g/dL (12.0-16.0); LYMPHOCYTES % 49.7 % (20.0-50.0); MEAN PLATELET VOLUME 10.7 fl (7.4-10.4); MONOCYTES % 9.5 % (2.0-8.0); NEUTROPHILS % 37.3 % (40.0-76.0); PLATELET 192 x1000/uL (130-400); RED BLOOD CELL COUNT 4.94 mill/uL (4.2-5.4); RED CELL DISTRIBUTION WIDTH 14.0 % (11.6-14.6)
[2024-12-11] MEDS ORDERED: IBUPROFEN 600MG TABLET PO ONE (23:45)
[2024-12-11] MEDS ORDERED: CYCLOBENZAPRINE 10MG TABLET PO ONE (23:45)
[2024-12-11 23:55] LABS: CREATININE 0.9 mg/dL (0.6-1.0); UREA NITROGEN BLOOD 16 mg/dL (9-23)
[2024-12-11 23:56] LABS: TROPONIN I HIGH SENSITIVITY < 4 ng/L (3.0-34)
[2024-12-12 00:05] LABS: HCG SCREEN INDETERMINATE
[2024-12-12 02:05] VITALS: TEMP 36.5; O2SAT 97
[2024-12-12 02:11] VITALS: BP 117/76; PULSE 79; RESP 15
[2024-12-12] MEDS: CYCLOBENZAPRINE 10MG TABLET PO NR (02:11)
[2024-12-12] MEDS: IBUPROFEN 600MG TABLET PO NR (02:11)
== END 2024-12-12 02:33 | disposition home or self-care (01) ==
LOC: ER 23:24
DX: R07.2 Precordial pain (principal); M79.10 Myalgia, unspecified site; F12.90 Cannabis use, unspecified, uncomplicated; I10 Essential (primary) hypertension; Z98.890 Other specified postprocedural states; Z79.899 Other long term (current) drug therapy; Z79.82 Long term (current) use of aspirin; Z79.1 Long term (current) use of non-steroidal anti-inflammatories (NSAID); Z88.1 Allergy status to other antibiotic agents
CPT/HCPCS: 36415; 71045; 80048; 84484; 84703; 85025; 93005; 99285

== ENCOUNTER 2025-01-22 23:43 | Emergency (ER) | payer MEDICAID ==
[~2025-01-22] VITALS: Ht 167.6 cm; Wt 81.0 kg
[2025-01-22 23:44] VITALS: O2SAT 98
[2025-01-23 00:23] VITALS: BP 114/75; PULSE 97; RESP 18; TEMP 37.2; O2SAT 99
[2025-01-23] MEDS: LIDOCAINE HCL 1% 20ML VIAL INFIL ONE (03:00)
[2025-01-23] MEDS: TETANUS, DIPHTHERIA, PERTUSSIS VAC/PF 0.5ML (>10YR OLD) IM ONE (03:39)
== END 2025-01-23 05:30 | disposition home or self-care (01) ==
LOC: ER 23:43
DX: S81.011A Laceration without foreign body, right knee, initial encounter (principal); F12.90 Cannabis use, unspecified, uncomplicated; Z88.1 Allergy status to other antibiotic agents; Z79.1 Long term (current) use of non-steroidal anti-inflammatories (NSAID); Z79.82 Long term (current) use of aspirin; Z79.899 Other long term (current) drug therapy; W22.8XXA Striking against or struck by other objects, initial encounter; Y93.89 Activity, other specified; Y92.89 Other specified places as the place of occurrence of the external cause; Y99.8 Other external cause status
CPT/HCPCS: 12002; 99283; 90715; 90471; J2003; Z7610 ×2

== ENCOUNTER 2025-01-30 13:23 | Emergency (ER) | payer MEDICAID ==
[~2025-01-30] VITALS: Ht 175.3 cm; Wt 80.0 kg
[2025-01-30 13:28] VITALS: O2SAT 100
[2025-01-30 14:33] LABS: BASOPHILS % 0.5 % (0.0-2.0); EOSINOPHILS % 0.2 % (0.0-5.0); HEMATOCRIT. 41.8 % (36.0-48.0); HEMOGLOBIN. 13.8 g/dL (12.0-16.0); LYMPHOCYTES % 9.4 % (20.0-50.0); MEAN PLATELET VOLUME 10.1 fl (7.4-10.4); MONOCYTES % 6.2 % (2.0-8.0); NEUTROPHILS % 83.7 % (40.0-76.0); PLATELET 189 x1000/uL (130-400); RED BLOOD CELL COUNT 5.03 mill/uL (4.2-5.4); RED CELL DISTRIBUTION WIDTH 13.9 % (11.6-14.6)
[2025-01-30 14:48] LABS: CREATININE 0.9 mg/dL (0.6-1.0); UREA NITROGEN BLOOD 11 mg/dL (9-23)
[2025-01-30 14:50] LABS: ASPARTATE AMINOTRANSFERASE 43 IU/L (<34); BILIRUBIN DIRECT 0.1 mg/dL (<=3.0); BILIRUBIN TOTAL 0.5 mg/dL (0.1-1.0)
[2025-01-30 14:51] LABS: PROTEIN TOTAL 8.2 g/dL (6.0-8.3)
[2025-01-30] MEDS ORDERED: ONDA-239 PO (17:34)
[2025-01-30] MEDS ORDERED: FAMO20TA8 MT (17:34)
[2025-01-30] MEDS: ONDANSETRON 4MG ODT PO ONE (18:29)
[2025-01-30] MEDS: FAMOTIDINE 20MG TABLET PO ONE (18:29)
[2025-01-30 18:33] VITALS: BP 135/95; PULSE 92; RESP 16; TEMP 37.1; O2SAT 98
== END 2025-01-30 18:39 | disposition home or self-care (01) ==
LOC: ER 13:23
DX: S81.811D Laceration without foreign body, right lower leg, subsequent encounter (principal); R11.2 Nausea with vomiting, unspecified; Z88.1 Allergy status to other antibiotic agents; X58.XXXD Exposure to other specified factors, subsequent encounter
CPT/HCPCS: 99283; 80076; 80048; 83690; 85025; 36415; Q0162